=== PATIENT | female | born 1955 | race Caucasian/White ===

== ENCOUNTER → 2019-04-30 | Outpatient (CLI) | payer OTHER ==
[~2019-04-30] MED LIST: ASPI-1012 PO; CELE200C PO; CETI-101 PO; FERR324T10 PO; GABA-533 PO; HYDR-4457 PO; LOSA25TA41 PO; METO-408 PO; POLY17PO4 PO; RANI-662 PO; SIMV40TA2 PO; ZOLP10TA2 PO
== END | disposition home or self-care (01) ==
LOC: RAH 07:52
PROVIDERS: ATTEND Orthopaedic Surgery
DX: S76.111A Strain of right quadriceps muscle, fascia and tendon, initial encounter (principal); X58.XXXA Exposure to other specified factors, initial encounter; Y93.89 Activity, other specified; Y92.89 Other specified places as the place of occurrence of the external cause; Y99.8 Other external cause status
CPT/HCPCS: 73721

== ENCOUNTER → 2023-09-13 | Outpatient (CLI) | payer MEDICARE ==
[~2023-09-13] MED LIST changes: +CELE-384 PO; -CELE200C PO; -CETI-101 PO; +CETI-89 PO; -GABA-533 PO; +GABA-534 PO; +SIMV-344 PO; -SIMV40TA2 PO
== END | disposition home or self-care (01) ==
LOC: RAH 13:29
PROVIDERS: ATTEND Family Medicine
DX: Z12.31 Encounter for screening mammogram for malignant neoplasm of breast (principal); Z78.0 Asymptomatic menopausal state
CPT/HCPCS: 77067; 77080

== ENCOUNTER → 2024-03-13 | Outpatient (CLI) | payer MEDICARE ==
[~2024-03-13] MED LIST changes: -CELE-384 PO; +CELE200C3 PO
[2024-03-13 13:00] LABS: CHOLESTEROL 148 mg/dL (<200); HDL CHOLESTEROL 70 mg/dL (35-85); LDL DIRECT 70 mg/dL (0-99); TRIGLYCERIDES 71 mg/dL (30-200)
== END | disposition home or self-care (01) ==
LOC: LAB 10:36
PROVIDERS: ATTEND Internal Medicine Cardiovascular Disease
DX: E78.5 Hyperlipidemia, unspecified (principal)
CPT/HCPCS: 36415; 80061

== ENCOUNTER → 2024-08-14 | Outpatient (CLI) | payer MEDICARE ==
[2024-08-14 17:28] LABS: CREATININE 0.9 mg/dL (0.5-1.0); MAGNESIUM 2.3 mg/dL (1.80-2.40); POTASSIUM 4.5 mmol/L (3.5-5.1)
== END | disposition home or self-care (01) ==
LOC: LAB 14:17
PROVIDERS: ATTEND Nurse Practitioner Acute Care
DX: I10 Essential (primary) hypertension (principal)
CPT/HCPCS: 36415; 80048; 83735

== ENCOUNTER → 2024-10-15 | Outpatient (CLI) | payer OTHER ==
[~2024-10-15] MED LIST changes: +ZOLP-685 PO; -ZOLP10TA2 PO
--- NOTE | 2024-10-15 14:33 | HMCIMG ---
CT HEART SAVER PROMOTIONAL HISTORY: Calcium scoring COMPARISON: None TECHNIQUE: Computed tomography of the heart was performed with ECG gating and suspended respiration. Postprocessing was performed on a computer workstation to obtain diastolic phase images, determine calcium score and provide a quantitative assessment of extent of disease. This CT included only the heart. HeartSaver score is 54.10. Please see cardiac calcium score report. The available CT chest images show no acute finding. CT was performed with one or more following dose reduction techniques: automated exposure control, adjustment of the mA and kv according to patient's size, or use of a iterative reconstruction technique.
== END | disposition home or self-care (01) ==
LOC: RAH 13:10
PROVIDERS: ATTEND Internal Medicine Cardiovascular Disease
DX: Z13.6 Encounter for screening for cardiovascular disorders (principal)
CPT/HCPCS: 75571

== ENCOUNTER → 2024-10-15 | Outpatient (CLI) | payer MEDICARE ==
--- NOTE | 2024-10-16 08:27 | HMCSR ---
APPROVED REPORT EXAM: Two-dimensional and M-mode echocardiogram with Doppler and color Doppler. INDICATION ICD: Palpitations 2D Dimensions RVDd3.0 cmLVEF(%)59.1 (>50%)LVED Vol(simp.)99.0 mL IVSd0.8 (0.7-1.1cm)FS(%)31 %LVES Vol(simp.)49.0 mL LVDd4.3 (3.8-5.6cm)LA (2D)3.9 (1.6-4.0cm)LVEF(%, simp.)51 % PWd0.8 (0.7-1.1cm)Ao Root(2D)3.0 (2.0-3.7cm)LA ESV INDEX (BP)28.95 mL/m2 LVDs2.9 (2.5-4.0cm)LVOT diam2.2 (1.8-2.4cm) IVC diam1.6 cm M-Mode Dimensions EPSS0.9 cm LA (MM)3.7 (1.6-4.0cm) Ao Root(MM)2.8 (2.0-3.7cm) Aortic Valve AoV Vmax1.3 m/Beena Peak GR7.2 mmHgLVOT Vmax0.9 m/s AoV VTI0.3 mAo Mean GR3.5 mmHgLVOT VTI0.22 m TAD (VMAX)2.91 cm2Al P1/2T554 msAVA (VTI) 2.9 cm2 Mitral Valve MV E Vmax61.1 cm/sDECEL Gygf474 ms MV A Vmax82.2 cm/sP 1/2 T67 ms E/A ratio0.7MVA (PHT)3.3 cm2 TDI E/E' Uqiyao59.6E/E' Jktlxdv15.5 Medial E' Peak V5.26 cm/sLateral E' Peak V5.84 cm/s Pulmonary Valve PV Vmax1.0 m/sPV Mean GR2.6 mmHg PV Peak GR4.4 mmHg Tricuspid Valve TR Vmax2.6 m/sRVSP24.6 mmHg TR Peak GR28.7 mmHg Left Ventricle The left ventricle is normal size. There is normal LV segmental wall motion. There is normal left teresa tricular wall thickness. LVEF is 50-55%. The left ventricular diastolic function is normal. Right Ventricle The right ventricle is normal size. The right ventricular systolic function is normal. Atria The left atrium size is normal. The right atrium size is normal. Aortic Valve The aortic valve is normal in structure. Mild aortic regurgitation. There is no aortic valvular steno sis. Mitral Valve The mitral valve is normal in structure. There is no evidence of significant mitral regurgitation. Th ere is no mitral valve stenosis. Tricuspid Valve The tricuspid valve is normal in structure. There is mild tricuspid valve regurgitation noted. Pulmonic Valve The pulmonary valve is normal in structure. There is mild to moderate pulmonic valvular regurgitation . Great Vessels The aortic root is normal in size. The IVC is normal in size and collapses >50% with inspiration. Pericardium There is no pericardial effusion. Conclusion LVEF is 50-55%. Mild aortic regurgitation. There is mild tricuspid valve regurgitation noted. There is mild to moderate pulmonic valvular regurgitation.
== END | disposition home or self-care (01) ==
LOC: SHCH 13:02
PROVIDERS: ATTEND Internal Medicine Cardiovascular Disease
DX: I08.8 Other rheumatic multiple valve diseases (principal); R00.2 Palpitations
CPT/HCPCS: 93306